=== PATIENT | female | born 2000 | race Caucasian/White ===

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

== ENCOUNTER → 2021-11-25 14:58 | Outpatient (BNVA) | payer SELFPAY | PROVIDERS: Family Provider Pediatrics Adolescent Medicine; Visit Provider Nurse Practitioner | DX: S99.921A Unspecified injury of right foot, initial encounter (principal); X58.XXXA Exposure to other specified factors, initial encounter | CPT/HCPCS: 73630 ==

== ENCOUNTER 2025-06-19 19:07 | Emergency (ER) | payer MEDICAID, SELFPAY ==
--- OUTSIDE RECORDS SUMMARY | 2016-01-15 04:45 | XMS_ITS | Continuity of Care Document ---
Author Organization [facility] Address [address] [place] [address] Phone Care Team Providers Care Isobutylene Operator Chief Name Role Phone Unavailable Unavailable Unavailable Advance Directives Directive Yes / No Effective Date File Name No Information Encounters Encounter Description Practice Location Reason(s) For Visit Diagnoses Date Provider Providers Copied on Encounter [facility], [address] [facility], [place], [address], tel:[phone] [facility] No Information 6 No Information Referring Provider: SILVIA HALL, [address] [place] [address], [id number]. tel:[phone] Family History Family Member Type Diagnosis Age At Onset Problem (finding) No family hist ory of Congenital Heart Disease Problem (finding) No family hist ory of Cardiomyopathy - dilated Problem (finding) No family history of Pr emature CAD Problem (finding) No family history of Adrian dden Problem (finding) No family history of Di abetes Mellitus Problem (finding) No family history of Hy pertension Problem (finding) No family history of Ar rhythmia Problem (finding) No family hist ory of Cardiomyopathy - hypertrophic Payers Payer name Insurance type Covered republican ID Authoriza tion(s) [facility] [id number] Social History Type Description Quantity Date Captured Comments Alcohol Use Details Unknown Caffeine Use Details Unknown Tobacco Use Status No Information Smoking Status No Information Sex Female Vital Signs Date / Time: Height Weight BMI Pulse Rate Blood Pressure Temperature Respiratory Rate Body Surface Area Head Circumference BMI percentile Pulse Ox Inhaled Ox 11:01 AM 62.00 in 56.245 kg (124.00 lbs) 22.7 0 kg/m eter (2) 73 /min 20 /min 1.57 meter(2) 74 Chief Complaint And Reason For Visit No Information History Of Present Illness Encounter Date Complaint History Of Prese nt Illness No Information Instructions Date Instruction Additional Infor mation No Information Assessments Type Assessment Date No Information
[2025-06-19 19:16] VITALS: BP 91/60; PULSE 73; RESP 16; TEMP 36.3; O2SAT 98; BMI 23.8
--- OUTSIDE RECORDS SUMMARY | 2025-06-19 19:16 | XMS_ITS | Clinical Summary ---
Author Organization [facility] Address [address] Attn: Epic [place] [address] Care Team Providers Care Frame Sample And Pattern Supervisor Name Role Phone Unavailable Primary Care Provider Unavailabl e Immunizations Immunization Administration Dates Next Due (M-M-R II/PRIORIX)(12 MO UP) MEASLES, MUMPS AND RUBELLA VIRUS VACCINE, 0.5 ML IM/SUBCUT 12/07/2004,08/28/2001 (VARIVAX)(12 MOS UP)VARICELL A VIRUS VACCINE (PF) 0.5 ML, SUB CUT 05/29/2001 Dt Dtp Dtap Vaccine 12/07/2004, 1,2000,1999,2000 HIB, Unspecified Formulation 08/28/2001, 2000,2000,1999 Hepatitis B Vaccine 2000,2000,1999 IPV/OPV 12/07/2004, 1,2000,1999 Social History Tobacco Use Types Packs/Day Years Used Date Smoking Tobacco: Never Assessed Comments Unknown Sex and Gender Information Value Date Recorded Sex Assigned at Not on file Legal Sex Female 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
--- OUTSIDE RECORDS SUMMARY | 2025-06-19 19:16 | XMS_ITS | Encounter Summary ---
Author Organization [facility] Address [address] [place] [address] Care Team Providers Care Roll Forming Machine Set Up Mechanic Name Role Phone Unavailable Primary Care Provider Unavailabl e Encounter Details Date Type Department Care Team (Late st Contact Info) Description 02/19/2008 Outpatient Historical [facility] [address] [place] [phone] Cyrus Alejandro MD NO ADDRESS ON FILE Social History Tobacco Use Types Packs/Day Years Used Date Smoking Tobacco: Never Assessed Comments Unknown Sex and Gender Information Value Date Recorded Sex Assigned at Not on file Legal Sex Female 6:56 AM LIEUTENANT COLONEL Gender Identity Not on file Sexual Orientation Not on file documented as of this encounter Plan of Treatment Not on file documented as of this encounter Procedures Procedure Name Priority Date/Time Associated Diagnosis Comments XR CHEST PA AND LATERAL 2 VW Routine 02/19/2008 11:19 AM CDT documented in this encounter Results * XR CHEST PA AND LATERAL (02/19/2008 11:19 AM CDT) Anatomical Region Laterality Modality Chest Other 02/19/2008 11:1 9 AM CDT Narrative 02/19/2008 11:19 AM CDT CHEST PA AND LATERAL CHEST - 02/19/2008 HISTORY: Atrial septal defect. Heart and mediastinum are within normal limits. Both lungs are well expanded and clear. Pulmonary vascularity is normal. IMPRESSION: Unremarkable exam. jaw Dictated By: Pasquale [place], M.D. Electronically Signed By: Pasquale Osman M.D. Date Signed: 02/20/08 GILLIAN Procedure Note Pasquale Osman W - 02/20/2008 CHEST PA AND LATERAL CHEST - 02/19/2008 HISTORY: Atrial septal defect. Heart and mediastinum are within normal limits. Both lungs are wellexpanded and clear. Pulmonary vascularity is normal. IMPRESSION: Unremarkable exam. gillian Dictated By: Pasquale Osman M.D. Electronically Signed By: Pasquale Osman M.D. Date Signed: 02/20/08 GILLIAN us Cyrus Alejandro MD DIAGNOSTIC IMAGING ORDERAB LES Final Result documented in this encounter Visit Diagnoses Not on filedocumented in this encounter
--- OUTSIDE RECORDS SUMMARY | 2025-06-19 19:16 | XMS_ITS | Encounter Summary ---
Author Organization [facility] Address [address] [place] [address] Care Team Providers Care Educational Administrator Name Role Phone Unavailable Primary Care Provider Unavailabl e Encounter Details Date Type Department Care Team (Latest Contact Info) Description 08/10/2004 Outpatient Historical [facility] [address] [place] [phone] Maxi Lopez MD [address] [place] [phone] HEALTH EXAM-GROUP SURVEY (Primary Dx) Social History Tobacco Use Types Packs/Day Years Used Date Smoking Tobacco: Never Assessed Comments Unknown Sex and Gender Information Value Date Recorded Sex Assigned at Not on file Legal Sex Female 6:56 AM RECOVERY MANAGER Gender Identity Not on file Sexual Orientation Not on file documented as of this encounter Plan of Treatment Not on file documented as of this encounter Visit Diagnoses Diagnosis Health examination of defined subpopulation- Primary documented in this encounter
--- OUTSIDE RECORDS SUMMARY | 2025-06-19 19:16 | XMS_ITS | Encounter Summary ---
Author Organization [facility] Address [address] [place] [address] Care Team Providers Care House Furnishings Supervisor Name Role Phone Unavailable Primary Care Provider Unavailabl e Encounter Details Date Type Department Care Team (Latest Contact Info) Description 02/27/2009 Ancillary Orders [facility] [address] [place] [phone] Cyrus Alejandro MD NO ADDRESS ON FILE ASD (Atrial Septal Defect) Social History Tobacco Use Types Packs/Day Years Used Date Smoking Tobacco: Never Assessed Comments Unknown Sex and Gender Information Value Date Recorded Sex Assigned at Not on file Legal Sex Female 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 Heart size normal. Mediastinum is unremarkable. There appears to have been interval placement of a cage-type device over the right side of the heart, probably over a patent foramen ovale. Pulmonary vascularity is normal and lungs appear clear. IMPRESSION No acute abnormality. Clinical correlation needed. ekp - uploaded from [employer] - Procedure Note Pasquale Osman MD - 02/27/2009 Two views of the chest were obtained and compared to exam from 02/19/2008.Heart size normal. Mediastinum is unremarkable. There appears to have been interval placement of acage-type device over the right side of the heart, probably over a patent foramen ovale. Pulmonary vascularityis normal and lungs appear clear. IMPRESSION No acute abnormality. Clinical correlation needed. ekp - uploaded from [employer] - us Cyrus Alejandro MD DIAGNOSTIC IMAGING ORDERAB LES Final Result documented in this encounter Visit Diagnoses Diagnosis ASD (atrial septal defect) Ostium secundum type atrial septal defect ASD (atrial septal defect) Ostium secundum type atrial septal defect documented in this encounter
--- OUTSIDE RECORDS SUMMARY | 2025-06-19 19:16 | XMS_ITS | Clinical Summary ---
Author Organization [facility] Address [address] [place] [address] Care Team Providers Care Single Ending Machine Operator Name Role Phone Unavailable Primary Care Provider [...] on file Legal Sex Female 6:56 AM GWOT IA/ILO INTELLIGENCE SUPPORT Gender Identity Not on file Sexual Orientation Not on file Plan of Treatment Health Maintenance Due Date Last Done Comments DTAP/TDAP/TD VACCINES (6 - Tdap) 2011 12/07/2004, 08/28/2001, 2000, Additional history exists HPV VACCINES (1 - 3-dose series) 2015 CERVICAL CANCER SCREENING 2021 HPV/Cotest (21-29) 2021 PAP SMEAR 2021 INFLUENZA VACCINE (#1) 2025 HEPATITIS B VACCINES Completed 2000, 2000, 2000 [place]
--- NOTE | 2025-06-19 20:02 | XRR_ITS ---
PROCEDURE INFORMATION: Exam: XR Chest Exam date and time: 06/19/2025 8:10 PM Age: 25 years old Clinical indication: Pain; Chest pressure; Additional info: Cp TECHNIQUE: Imaging protocol: Radiologic exam of the chest. Views: 1 view. COMPARISON: No relevant prior studies available. FINDINGS: Lungs: No pulmonary edema. No consolidation. Pleural spaces: Unremarkable. No pleural effusion. No pneumothorax. Heart/Mediastinum: Presumed foramen ovale closure device projects over the expected location of the interatrial septum. No cardiomegaly. Bones/joints: Unremarkable. XR/XR chest 1V portable [id number] IMPRESSION: No acute findings.
--- NOTE | 2025-06-19 20:03 | ECG_ITS ---
Portable Internet Test Date: 2025-06-19 Pat Name: Aurea Wellington Department: Room: Gender: Female Sales Broker: : 2000 Requested By: Alex Wood Order Number: [id number] Reading MD: Measurements Intervals [place] Rate: 73 P: 62 MN: 181 QRS: 70 QRSD: 109 T: 53 QT: 387 QTc: 428 Interpretive Statements SINUS RHYTHM WITH SINUS ARRHYTHMIA INCOMPLETE RIGHT BUNDLE BRANCH BLOCK [90+ ms QRS DURATION, TERMINAL R IN V1/V2, 40+ ms S IN I/aVL/V4/V5/V6] NONSPECIFIC ST & T-WAVE ABNORMALITY INTERPRETATION BASED ON A DEFAULT AGE OF 40 YEARS No previous ECG available for comparison [email or web address]
[2025-06-19 21:07] LABS: Hematocrit 37.8 % (36-47); Hemoglobin 12.10 g/dL (11.27-16.99); Mean Corpuscular HGB Conc 32.0 g/dL (30-55); Mean Corpuscular Hemoglobin 30.9 pg (27-33); Mean Corpuscular Volume 96.4 fl (85-98); Nucleated Red Blood Cells % 0 %; Platelet Count 311 10^3/cmm (157-399); Red Blood Count 3.92 10^6/uL (3.85-5.65); White Blood Count 10.22 10^3/uL (3.29-11.43)
[2025-06-19 21:28] LABS: Troponin(5th) Baseline < 6 ng/L (0-10)
[2025-06-19 21:45] LABS: Alanine Aminotransferase 10 U/L (0-33); Albumin Level 4.4 g/dL (3.5-5.2); Alkaline Phosphatase 61 U/L (35-105); Anion Gap 14.7 (5-19); Aspartate Amino Transferase 17 U/L (0-32); Blood Urea Nitrogen 8 mg/dL (6-20); Calcium 9.4 mg/dL (8.5-10.5); Carbon Dioxide 26 mmol/L (22-29); Chloride 102 mmol/L (98-107); Creatinine Clr Calc Pharmacy 80.9255; Globulin 2.2 g/dL (1.3-4.6); Glucose 80 mg/dL (65-115); Lipase 68 U/L (13-60); Magnesium 2.1 mg/dL (1.7-2.3); NT Pro B Type Natriuretic Pept 90 pg/mL (0-125); Osmolality Calculated 285 mOsm/kg (285-295); Potassium 3.7 mmol/L (3.5-5.1); Sodium 139 mmol/L (136-145); Thyroid Stimulating Hormone 7.14 uIU/mL (0.27-4.20); Total Protein 6.6 g/dL (6.6-8.7)
[2025-06-19 21:55] VITALS: BP 120/83; PULSE 73; RESP 16; O2SAT 100
--- NOTE | 2025-06-19 22:01 | ECG_ITS ---
deeplocal Test Date: 2025-06-19 Pat Name: Aurea Wellington Department: Room: Gender: Female Pasteurizing Supervisor: : 2000 Requested By: Alex Wood Order Number: [id number] Marv MD: Mihir Pimentel M.D. Measurements Intervals [place] Rate: 74 P: 53 [place]: 180 QRS: 60 QRSD: 109 T: 51 QT: 387 QTc: 431 Interpretive Statements SINUS RHYTHM POSSIBLE LEFT ATRIAL ENLARGEMENT [-0.1mV P-WAVE IN V1/V2] INCOMPLETE RIGHT BUNDLE BRANCH BLOCK [90+ ms QRS DURATION, TERMINAL R IN V1/V2, 40+ ms S IN I/aVL/V4/V5/V6] MODERATE ST DEPRESSION [0.05+ mV ST DEPRESSION] Compared to ECG 06/19/2025 19:19:37 ST (T wave) deviation now present Sinus arrhythmia no longer present T-wave abnormality no longer present Electronically Signed On 06-21-2025 08:51:52 CDT by Mihir Pimentel M.D. [email or web address]
[2025-06-19 22:12] LABS: Glucose Urine UA Negative (Normal); Nitrate Urine Negative (Negative); Specific Gravity, Urine 1.006 (1.005-1.030)
[2025-06-19 22:14] LABS: HCG Qualitative Urine. Negative (Negative)
[2025-06-19 22:17] LABS: Add Urine Microscopic? YES
--- NOTE | 2025-06-19 22:41 | ED_ITS ---
HPI - Chest Pain 2 General: Chief Complaint: Chest Pain Stated Complaint: CP dizzy Time Seen by Provider: 06/19/25 21:49 History of Present Illness: Aurea Wellington is a 25-year-old female that presents to the emergency department with complaints of left-sided chest pain and near syncopal event. Onset of symptoms just prior to arrival. Patient reports she was laying down when symptoms started. Upon getting up from bed she developed a near syncopal event. She says that she felt like she had a black curtain closing in. She sat down and symptoms improved. She denies palpitations today but has felt that before She denies shortness of breath She denies radiation of pain She denies nausea and vomiting. Patient reports that she has had a number of episodes like this recently. Related Data Home Medications ?Medication ?Instructions ?Recorded ?Confirmed ferrous sulfate 325 mg (65 mg 325 mg PO DAILY 10/18/24 03/21/25 iron) tablet (Feosol) Previous Rx's ?Medication ?Instructions ?Recorded prazosin 2 mg capsule 2 mg PO .HS #30 caps 5 duloxetine 20 mg capsule,delayed 20 mg PO DAILY #30 ca ps 06/04/25 release Allergies Allergy/AdvReac Type Severity Reaction Status Date / Time No Known Drug Allergies Allergy Unknown Unknown Verified 03/21/25 10:28 Review of Systems 2 General: Reports: 10 or more systems reviewed and unremarkable except in HPI and below PFSH ED 2 PFSH: Medical History (Updated 06/20/25 @ 00:06 by GE Gil) Psychiatric care Gestational diabetes Term Social History Smoking and tobacco/nicotine status: former use of tobacco/nicotine Female Reproductive History: Date of last menstrual period: 06/19/25 Physical Exam 2 Const: COMMON NORMALS: no acute distress, patient oriented x3 and alert G ENERAL APPEARANCE: cooperative ORIENTATION/CONSCIOUSNESS: Yes awake, Yes oriented to person, Yes oriented to place and Yes oriented to time HENMT: COMMON NORMALS: normocephalic and atraumatic HEAD & SCALP: n ormocephalic and atraumatic FACE & SINUS: normal facial exam MOUTH: Normal oral and palatal mucosa present THROAT: posterior oropharynx normal Eye: COMMON NORMALS: Equal, round and reactive pupils present, EOMs intact bilaterally, conjunctivae normal and no scleral icterus GENERAL EYE: a ppearance normal, both eyes and all related structures ALIGNMENT: Yes alignment normal PERIORBITAL: periorbital findings normal CONJUNCTIVA: Yes conjunctivae normal PUPIL: Yes Equal, round and reactive pupils present Neck/C-Spine: COMMON NORMALS: full ROM GENERAL: Yes normal visual inspection Lymph: LYMPHATIC: no lymphadenopathy noted Chest: COMMONS NORMALS: normal inspection of the chest Breast/axilla inspection: Yes no chest deformity, asymmetry, normal contours, no nodules, masses, tenderness Resp: COMMON NORMALS: normal respiratory effort, No retractions and No use of accessory muscles EFFORT & INSPECTION: Yes able to speak in complete sentences and Yes symmetric chest movement Cardio: COMMON NORMALS: regular rate, regular rhythm and Peripheral pulses 2+ throughout RATE: regular rate RHYTHM: regular rhythm PERIPHERAL PULSES: Peripheral pulses 2+ throughout GI: COMMON NORMALS: Normal to inspection, nondistended, normoactive bowel sounds present, Soft to palpation, non-tender and No hepatosplenomegaly present INSPECTION: Yes normal to inspection AUSCULTATION: Yes normoactive bowel sounds PALPATION: Yes Soft to palpation and Yes No hepatosplenomegaly present RECTAL EXAM: deferred Extremity: COMMON NORMALS: normal to inspection GENERAL: Yes normal exam except as noted Neuro: COMMON NORMALS: patient oriented x3 SENSORIUM/ORIENTATION: Yes alert, Yes oriented to person, Yes oriented to place and Yes oriented to time CRANIAL NERVES: Yes CN normal except as noted Psych: COMMON NORMALS: mental status grossly normal, Normal thought process present, cooperative, activity/motor behavior normal, denies homicidal ideation and denies suicidal ideation THOUGHT PROCESS: Normal thought process present Skin: COMMON NORMALS: no rashes or lesions noted, no wounds and turgor normal GENERAL SKIN EXAM: no rashes or lesions noted and turgor normal Course 2 Vital Signs: Vital signs: Vital Signs Temperature 97.4 F L 06/19/25 19:16 Pulse Rate 73 06/19/25 22:57 Respiratory Rate 16 06/19/25 21:55 Blood Pressure 102/66 06/19/25 22:57 Pulse Oximetry 100 06/19/25 22:57 Oxygen Delivery Me thod Room Air 06/19/25 21:55 MDM - Chest Pain Medical Decision Making Patient is a 25-year-old female that presents to the emergency department with complaints of chest pain and near syncope. Differentials include pulmonary disease, cardiac disease, arrhythmia, , hypothyroidism. She has no history of heart disease, hypertension, cholesterol issues. Patient underwent laboratory evaluation that included CBC, CMP, mag, troponin series, BNP, lipase, TSH, urinalysis and urine test. CBC reveals no leukocytosis or anemias CMP reveals no electrolyte abnormality or kidney dysfunction. Lipase is only mildly elevated at 68. Her TSH was 7.14. ? Hypothyroidism Negative urine test and negative urinalysis EKG reveals possible ST depression she has a normal rate and rhythm. I reviewed the EKG with Dr. Reza. Chest x-ray reveals no cardiopulmonary abnormalities. Her heart score is 1 point I recommending that she follow-up with primary care. She does not have a primary care office. We are going to have case management assist with establishing primary care. Additional workup may be warranted for hypothyroidism. I am also going to have case management assist with a Holter monitor Patient is agreeable with plan Lab Data 06/19/25 20:22 06/19/25 20:22 Radiology Impressions Chest X-Ray 06/19/25 20:02 IMPRESSION: No acute findings. Laboratory Results WBC 10.22 10^3/uL (3.29-11.43) 06/19/25 20:22 RBC 3.92 10^6/uL (3.85-5.65) 06/19/25 20:22 Hgb 12.10 g/dL (11.27-16.99) 06/19/25 20:22 Hct 37.8 % (36-47) 06/19/25 20:22 MCV 96.4 fl (85-98) 06/19/25 20:22 MCH 30.9 pg (27-33) 06/19/25 20:22 MCHC 32.0 g/dL (30-55) 06/19/25 20:22 RDW 12.1 % (12.1-15.1) 06/19/25 20:22 Plt Count 311 10^3/cmm (157-399) 06/19/25 20:22 MPV 10.7 fL (7.4-10.4) H 06/19/25 20:22 Neut % (Auto) 71.0 % 06/19/25 20:22 Lymph % (Auto) 16.2 % 06/19/25 20:22 [place] % (Auto) 8.3 % 06/19/25 20:22 Eos % (Auto) 3.5 % 06/19/25 20:22 Baso % (Auto) 0.6 % 06/19/25 20:22 Neut # (Auto) 7.25 10^3/uL (1.8-7.7) 06/19/25 20:22 Lymph # (Auto) 1.7 10^3/uL (0.8-4.8) 06/19/25 20:22 [place] # (Auto) 0.9 10^3/uL (0.2-0.9) 06/19/25 20:22 Eos # (Auto) 0.4 10^3/uL (0.0-0.8) 06/19/25 20:22 Baso # (Auto) 0.1 10^3/uL (0.0-0.1) 06/19/25 20:22 Nucleated RBC % (auto) 0 % 06/19/25 20:22 Nucleated RBCs # 0.0 /100WBC 06/19/25 20:22 Sodium 139 mmol/L (136-145) 06/19/25 20:22 Potassium 3.7 mmol/L (3.5-5.1) 06/19/25 20:22 Chloride 102 mmol/L (98-107) 06/19/25 20:22 Carbon Dioxide 26 mmol/L (22-29) 06/19/25 20:22 Anion Gap 14.7 (5-19) 06/19/25 20:22 BUN 8 mg/dL (6-20) 06/19/25 20:22 Creatinine 0.9 mg/dL (0.5-0.9) 06/19/25 20:22 GFR Calculation 76.3 mL/min (90-130) L 06/19/25 20:22 Glucose 80 mg/dL (65-115) 06/19/25 20:22 Calculated Osmolality 285 mOsm/kg (285-295) 06/19/25 20:22 Calcium 9.4 mg/dL (8.5-10.5) 06/19/25 20:22 Magnesium 2.1 mg/dL (1.7-2.3) 06/19/25 20:22 Total Bilirubin 0.7 mg/dL (0.15-1.2) 06/19/25 20:22 AST 17 U/L (0-32) 06/19/25 20:22 ALT 10 U/L (0-33) 06/19/25 20:22 Alkaline Phosphatase 61 U/L (35-105) 06/19/25 20:22 Troponin T Baseline < 6 ng/L (0-10) 06/19/25 20:22 Troponin T 120 Minute < 6.0 ng/L (0-10) 06/19/25 22:25 Delta Troponin T 0 ABS# (0-10) 06/19/25 22:25 NT-Pro-B Natriuret Pep 90 pg/mL (0-125) 06/19/25 20:22 Total Protein 6.6 g/dL (6.6-8.7) 06/19/25 20: Albumin 4.4 g/dL (3.5-5.2) 06/19/25 20: Globulin 2.2 g/dL (1.3-4.6) 06/19/25 20:22 Lipase 68 U/L (13-60) H 06/19/25 20:22 TSH 7.14 uIU/mL (0.27-4.20) H 06/19/25 20:22 HCG, Qual Negative (Negative) 06/19/25 22:06 Urine Color Yellow (Yellow) 06/19/25 22:06 Urine Appearance Cloudy (CLEAR) A 06/19/25 22:06 Urine pH 7.0 (5-7) 06/19/25 22:06 Ur Specific Andreas 1.006 (1.005-1.030) 06/19/25 22:06 Urine Protein Negative (Negative) 06/19/25 22:06 Urine Glucose (UA) Negative (Normal) 06/19/25 22:06 Urine Ketones Negative (Negative) 06/19/25 22:06 Urine Blood 2+ (Negative) A 06/19/25 22:06 Urine Nitrate Negative (Negative) 06/19/25 22:06 Urine Bilirubin Negative (Negative) 06/19/25 22:06 Urine Urobilinogen 1.0 mg/dL (Negative) 06/19/25 22:06 Ur Leukocyte Esterase Negative (Negative) 06/19/25 22:06 Urine RBC 0-2 /hpf (0-2) 06/19/25 22:06 Urine WBC 0-5 /hpf (0-5) 06/19/25 22:06 Ur Squamous Epith Cells 0-5 /hpf (0-5) 06/19/25 22:06 Amorphous Sediment Not Reportable 06/19/25 22:06 Urine Bacteria None seen /hpf (NONE) 06/19/25 22:06 Hyaline Casts 0.81 /lpf 06/19/25 22:06 All radiology interpretation(s) finalized by discharge Discharge Plan Discharge Patient Disposition: Home Clinical Impression: Chest pain, Near syncope Condition: Stable Prescriptions: No Action ferrous sulfate [Feosol] 325 mg (65 mg iron) tablet 325 mg PO DAILY prazosin 2 mg capsule 2 mg PO .HS Qty: 30 2RF duloxetine 20 mg capsule,delayed release(DR/EC) 20 mg PO DAILY Qty: 30 2RF Discharge Orders: Discharge ED (Routine); Ordered 06/20/25 Ordered By: Alex Wood McTeer Referrals: Maggy Corbin MD [Primary Care Provider, Pediatrics] Discharge Diet: Advance as tolerated Discharge Activity: Resume usual activity Patient Instructions: Opioid Safety, Pain Management, Patient Portal & Josy Instructions Activity Restrictions/Additional Instructions: We have asked case management to assist in setting up primary care. We have also asked them to help set up a Holter monitor. I want you to follow-up with primary care in the next couple weeks. Please return to the emergency department for new, concerning, worsening symptoms Print Language: Gibraltarian Coding Level of Care Code ED News Commentator for Gerald Powell
[2025-06-19 22:52] LABS: Troponin 5 2HR < 6.0 ng/L (0-10); Troponin 5 2HR Delta 0 ABS# (0-10)
[2025-06-19 22:57] VITALS: BP 102/66; PULSE 73; O2SAT 100
[2025-06-20 00:11] VITALS: BP 100/68; PULSE 72; O2SAT 98
--- NOTE | 2025-06-24 09:17 | PC.NURSE ---
PCP referral sent.
== END 2025-06-20 00:15 | disposition home or self-care (01) ==
PROVIDERS: Emergency Provider Nurse Practitioner; PCP Pediatrics Adolescent Medicine
DX: R07.9 Chest pain, unspecified (principal); R55 Syncope and collapse; Z87.891 Personal history of nicotine dependence
CPT/HCPCS: 36415; 71045; 80053; 81001; 81025; 83690; 83735; 83880; 84443; 84484; 85025; 93005; 99285

== ENCOUNTER 2025-07-02 15:06 | Emergency (ER) | payer MEDICAID, SELFPAY ==
--- NOTE | 2025-07-02 15:08 | ECG_ITS ---
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 Measurements Intervals Patterson Rate: 89 P: 71 DC: 161 QRS: 58 QRSD: 95 T: 46 QT: 346 QTc: 421 Interpretive Statements SINUS RHYTHM POSSIBLE LEFT ATRIAL ENLARGEMENT [-0.1mV P-WAVE IN V1/V2] INCOMPLETE RIGHT BUNDLE BRANCH BLOCK [90+ ms QRS DURATION, TERMINAL R IN V1/V2, 40+ ms S IN I/aVL/V4/V5/V6] MODERATE ST DEPRESSION [0.05+ mV ST DEPRESSION] Compared to ECG 06/19/2025 22:01:51 No significant changes Electronically Signed On 07-02-2025 22:47:02 CDT by Melba oSsa M.D. [email or web address]
--- NOTE | 2025-07-02 15:08 | XRR_ITS ---
PROCEDURE INFORMATION: Exam: XR Chest Exam date and time: 07/02/2025 3:16 PM Age: 25 years old Clinical indication: Pain; Angina pectoris; Prior surgery; Surgery date: 6+ months; Surgery type: Heart; Additional info: Cp TECHNIQUE: Imaging protocol: Radiologic exam of the chest. Views: 1 view. COMPARISON: CR (CHEST, ) 06/19/2025 8:10 PM FINDINGS: Lungs: Clear. No consolidation. Pleural spaces: No significant pleural effusion. No pneumothorax. Heart/Mediastinum: Normal in size. A tiny surgical clip is again seen projecting over the cardiac silhouette, stable. Bones/joints: Intact. Other findings: None. XR/XR chest 1V portable [id number] IMPRESSION: No radiographic evidence of acute cardiopulmonary disease.
--- OUTSIDE RECORDS SUMMARY | 2025-07-02 15:11 | XMS_ITS | Encounter Summary ---
Author Organization [facility] Address [address] [place] [address] Care Team Providers Care Bomb Squad Officer Name Role Phone Unavailable Primary Care Provider Unavailabl e Encounter Details Date Type Department Care Team (Late st Contact Info) Description 02/19/2008 Outpatient Historical [facility] [address] 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 jaw Dictated By: Pasquale Jacqui, M.D. Electronically Signed By: Pasquale Osman M.D. [...]
--- OUTSIDE RECORDS SUMMARY | 2025-07-02 15:11 | XMS_ITS | Encounter Summary ---
Author Organization [facility] Address [address] [place] [address] Care Team Providers Care Care Giver Name Role Phone Unavailable Primary Care Provider Unavailabl e Encounter Details Date Type Department Care Team (Latest Contact Info) Description 08/10/2004 Outpatient Historical [facility] [address] [place] [phone] Maxi Lopez MD [address] [place] [phone] HEALTH EXAM-GROUP SURVEY (Primary Dx) Social History Tobacco Use Types Packs/Day Years Used Date Smoking Tobacco: Never Assessed Comments Unknown Sex and Gender Information Value Date Recorded Sex Assigned at Not on file 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
--- OUTSIDE RECORDS SUMMARY | 2025-07-02 15:11 | XMS_ITS | Clinical Summary ---
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
--- OUTSIDE RECORDS SUMMARY | 2025-07-02 15:11 | XMS_ITS | Clinical Summary ---
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
--- OUTSIDE RECORDS SUMMARY | 2025-07-02 15:11 | XMS_ITS | Encounter Summary ---
Author Organization 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 ekp - uploaded from [email or web address] - Procedure Note Pasquale Osman MD - [...] Clinical correlation needed. ekp - uploaded from [employer] - us Cyrus Alejandro MD DIAGNOSTIC IMAGING ORDERAB LES Final Result documented in this encounter Visit Diagnoses Diagnosis ASD (atrial septal defect) Ostium secundum type atrial septal defect ASD (atrial septal defect) Ostium secundum type atrial septal defect documented in this encounter
[2025-07-02 15:15] VITALS: BP 125/85; PULSE 103; RESP 16; TEMP 36.5; O2SAT 99
--- NOTE | 2025-07-02 16:18 | ED_ITS ---
HPI - Chest Pain 2 General: Chief Complaint: Chest Pain Stated Complaint: chest pain Time Seen by Provider: 07/02/25 16:13 History of Present Illness: 25-year-old female presents emergency ro om with complaint of left upper chest pain. Began about 2 hours ago she had previous episodes in the past. Describes it as sweet squeezing sensation like a hugs it is worse when she palpates somewhat noticeable when she takes a deep breath she denies any productive cough no hemoptysis. No fever sweats or chills pain does not radiate anywhere else. No history of asthma. Associated symptoms: Deny abdominal pain, dyspnea or fever(s) Related Data Previous Rx's ?Medication ?Instructions ?Recorded duloxetine 20 mg capsule,delayed 20 mg PO DAILY #30 ca ps 06/04/25 release Allergies Allergy/AdvReac Type Severity Reaction Status Date / Time No Known Drug Allergies Allergy Unknown Unknown Verified 07/02/25 15:17 Review of Systems 2 Const: Denies: fever(s) or chills Card: Denies: chest pain Resp: Denies: dyspnea GI: Denies: abdominal pain : Denies: dysuria, urinary frequency or urinary urgency Musc: Denies: neck pain or back pain Skin/Breast: Denies: rash PFSH ED 2 PFSH: Medical History Psychiatric care Gestational diabetes Term Social History Smoking and tobacco/nicotine status: former use of tobacco/nicotine Physical Exam 2 Const: COMMON NORMALS: no acute distress GENERAL APPEARANCE: cooperative and comfortable ORIENTATION/CONSCIOUSNESS: Yes awake, Yes oriented to person, Yes oriented to place and Yes oriented to time HENMT: COMMON NORMALS: normocephalic, atraumatic and hearing grossly normal bilaterally HEAD & SCALP: normocephalic and atraumatic Resp: COMMON NORMALS: normal respiratory effort, No retractions, No use of accessory muscles and clear to auscultation bilaterally AUSCULTATION: clear to auscultation bilaterally Cardio: COMMON NORMALS: regular rate, regular rhythm and No murmurs present (Cardio) RATE: regular rate RHYTHM: regular rhythm GI: COMMON NORMALS: Soft to palpation and No hepatosplenomegaly present A USCULTATION: Yes normoactive bowel sounds PALPATION: Yes Soft to palpation, No Tenderness to palpation present (GI), No Guarding due to palpation present (GI) and Yes No hepatosplenomegaly present Extremity: COMMON NORMALS: normal to inspection, capillary refill normal, no clubbing, cyanosis or edema, no calf tenderness and no pedal edema Neuro: SENSORIUM/ORIENTATION: Yes oriented to person, Yes oriented to place and Yes oriented to time Skin: COMMON NORMALS: no rashes or lesions noted GENERAL SKIN EXAM: no rashes or lesions noted Course 2 Vital Signs: Vital signs: Vital Signs Temperature 97.7 F 07/02/25 15:15 Pulse Rate 103 H 07/02/25 15:15 Respiratory Rate 16 07/02/25 15:15 Blood Pressure 125/85 07/02/25 15:15 Pulse Oximetry 99 07/02/25 15:15 Oxygen Delivery Me thod Room Air 07/02/25 15:15 MDM - Chest Pain Medical Decision Making EKG does not show any acute changes chest x-ray normal. Laboratory test unremarkable. Description of symptoms is more pleuritic in nature. No hypoxia. Will discharge patient home and have her follow-up with her primary care doctor if symptoms persistent. Medical Records I reviewed the patient's medical records. Lab Data I reviewed the patient's lab results. 07/02/25 16:34 07/02/25 16:34 Radiology Impressions Chest X-Ray 07/02/25 15:08 IMPRESSION: No radiographic evidence of acute cardiopulmonary disease. Laboratory Results WBC 6.48 10^3/uL (3.29-11.43) 07/02/25 16:34 RBC 4.41 10^6/uL (3.85-5.65) 07/02/25 16:34 Hgb 13.70 g/dL (11.27-16.99) 07/02/25 16:34 Hct 40.9 % (36-47) 07/02/25 16:34 MCV 92.7 fl (85-98) 07/02/25 16:34 MCH 31.1 pg (27-33) 07/02/25 16:34 MCHC 33.5 g/dL (30-55) 07/02/25 16:34 RDW 11.8 % (12.1-15.1) L 07/02/25 16:34 Plt Count 312 10^3/cmm (157-399) 07/02/25 16:34 MPV 10.4 fL (7.4-10.4) 07/02/25 16:34 Neut % (Auto) 68.1 % 07/02/25 16:34 Lymph % (Auto) 17.7 % 07/02/25 16:34 [place] % (Auto) 8.8 % 07/02/25 16:34 Eos % (Auto) 4.6 % 07/02/25 16:34 Baso % (Auto) 0.6 % 07/02/25 16:34 Neut # (Auto) 4.41 10^3/uL (1.8-7.7) 07/02/25 16:34 Lymph # (Auto) 1.2 10^3/uL (0.8-4.8) 07/02/25 16:34 [place] # (Auto) 0.6 10^3/uL (0.2-0.9) 07/02/25 16:34 Eos # (Auto) 0.3 10^3/uL (0.0-0.8) 07/02/25 16:34 Baso # (Auto) 0.0 10^3/uL (0.0-0.1) 07/02/25 16:34 Nucleated RBC % (auto) 0 % 07/02/25 16:34 Nucleated RBCs # 0.0 /100WBC 07/02/25 16:34 Sodium 140 mmol/L (136-145) 07/02/25 16:34 Potassium 4.1 mmol/L (3.5-5.1) 07/02/25 16:34 Chloride 105 mmol/L (98-107) 07/02/25 16:34 Carbon Dioxide 24 mmol/L (22-29) 07/02/25 16:34 Anion Gap 15.1 (5-19) 07/02/25 16:34 BUN 11 mg/dL (6-20) 07/02/25 16:34 Creatinine 0.6 mg/dL (0.5-0.9) 07/02/25 16:34 GFR Calculation 121.8 mL/min (90-130) 07/02/25 16:34 Glucose 91 mg/dL (65-115) 07/02/25 16:34 Calculated Osmolality 289 mOsm/kg (285-295) 07/02/25 16:34 Calcium 9.1 mg/dL (8.5-10.5) 07/02/25 16:34 Total Bilirubin 0.6 mg/dL (0.15-1.2) 07/02/25 16:34 AST 18 U/L (0-32) 07/02/25 16:34 ALT 15 U/L (0-33) 07/02/25 16:34 Alkaline Phosphatase 56 U/L (35-105) 07/02/25 16:34 Total Protein 7.2 g/dL (6.6-8.7) 07/02/25 16:34 Albumin 4.4 g/dL (3.5-5.2) 07/02/25 16:34 Globulin 2.8 g/dL (1.3-4.6) 07/02/25 16:34 All radiology interpretation(s) finalized by discharge Discharge Plan Discharge Patient Disposition: Home Clinical Impression: Pleuritic chest pain Condition: Stable Prescriptions: No Action duloxetine 20 mg capsule,delayed release(DR/EC) 20 mg PO DAILY Qty: 30 2RF Discharge Orders: Discharge ED (Routine); Ordered 07/02/25 Ordered By: Ken Yeung Referrals: Maggy Corbin MD [Primary Care Provider, Pediatrics] Discharge Diet: Usual diet Discharge Activity: Resume usual activity Patient Instructions: Opioid Safety, Pain Management, Patient Portal & Josy Instructions Activity Restrictions/Additional Instructions: Thank you for choosing [facility] for your healthcare needs today. It is very important that you follow up as instructed or that you return to the Emergency Department should you have concerns or if your condition changes or worsens in any way. You were seen emergency room with complaint of left upper chest pain your EKG was normal chest x-ray did not show any acute abnormalities your laboratory tests were also normal. Your description of chest pain sounds more pleuritic in nature. Recommend Tylenol or ibuprofen or Aleve for discomfort. If your symptoms persist follow-up with your primary care doctor Print Language: Marshallese Coding Level of Care Code ED Trolley Car Overhauler for Gerald Powell
[2025-07-02 16:40] LABS: Hematocrit 40.9 % (36-47); Hemoglobin 13.70 g/dL (11.27-16.99); Mean Corpuscular HGB Conc 33.5 g/dL (30-55); Mean Corpuscular Hemoglobin 31.1 pg (27-33); Mean Corpuscular Volume 92.7 fl (85-98); Nucleated Red Blood Cells % 0 %; Platelet Count 312 10^3/cmm (157-399); Red Blood Count 4.41 10^6/uL (3.85-5.65); White Blood Count 6.48 10^3/uL (3.29-11.43)
[2025-07-02 16:58] LABS: Alanine Aminotransferase 15 U/L (0-33); Albumin Level 4.4 g/dL (3.5-5.2); Alkaline Phosphatase 56 U/L (35-105); Anion Gap 15.1 (5-19); Aspartate Amino Transferase 18 U/L (0-32); Blood Urea Nitrogen 11 mg/dL (6-20); Calcium 9.1 mg/dL (8.5-10.5); Carbon Dioxide 24 mmol/L (22-29); Chloride 105 mmol/L (98-107); Creatinine Clr Calc Pharmacy 121.3883; Globulin 2.8 g/dL (1.3-4.6); Glucose 91 mg/dL (65-115); Osmolality Calculated 289 mOsm/kg (285-295); Potassium 4.1 mmol/L (3.5-5.1); Sodium 140 mmol/L (136-145); Total Protein 7.2 g/dL (6.6-8.7)
[2025-07-02 17:31] VITALS: BP 116/77; PULSE 78; O2SAT 99
== END 2025-07-02 17:34 | disposition home or self-care (01) ==
PROVIDERS: Emergency Provider Family Medicine; PCP Pediatrics Adolescent Medicine
DX: R07.81 Pleurodynia (principal); Z87.891 Personal history of nicotine dependence
CPT/HCPCS: 36415; 71045; 80053; 85025; 93005; 99285

== ENCOUNTER → 2025-07-11 10:20 | Outpatient (BNVA) | payer MEDICAID, SELFPAY | DX: R42 Dizziness and giddiness (principal) | CPT/HCPCS: 84439; 84443; 86376 ==

== ENCOUNTER 2025-07-25 13:24 | Outpatient (CLI) | payer MEDICAID, SELFPAY ==
[2025-07-25 14:41] LABS: Lipase 34 U/L (13-60); Prealbumin 19.4 mg/dL (20-40)
== END 2025-07-25 13:25 | disposition home or self-care (01) ==
LOC: LAB 13:27
DX: R42 Dizziness and giddiness (principal)
CPT/HCPCS: 36415; 82533; 83690; 84134; 85378; 86003; 86008; 86140; 86618; 86666; 86757